=== PATIENT | male | born 1940 | race Caucasian/White ===

== ENCOUNTER 2016-12-02 08:49 | Day surgery (SDC) | payer MEDICARE, BC ==
[~2016-12-02 08:49] MED LIST: LIDOCAINE HCL 1% MPF SOL ONE; PROPOFOL 500 MG/50 ML EMU IV ONE
[2016-12-02 12:44] VITALS: BP 100/62; PULSE 57; RESP 18; TEMP 97.4; O2SAT 98
== END 2016-12-02 13:15 | disposition home or self-care (01) | DRG 951 ==
LOC: SURG 08:49
PROVIDERS: ATTEND Surgery
DX: Z12.11 Encounter for screening for malignant neoplasm of colon (principal); E11.9 Type 2 diabetes mellitus without complications; D12.0 Benign neoplasm of cecum; Z86.010 Personal history of colon polyps; K57.30 Diverticulosis of large intestine without perforation or abscess without bleeding; D12.2 Benign neoplasm of ascending colon; D12.3 Benign neoplasm of transverse colon; Z79.84 Long term (current) use of oral hypoglycemic drugs
CPT/HCPCS: 82962; J2001; J2704